=== PATIENT | male | born 1935 | race Caucasian/White ===

== ENCOUNTER 2021-11-08 21:24 | Inpatient (IN) | payer MEDICARE, OTHER ==
[~2021-11-08] VITALS: Ht 165.1 cm; Wt 80.4 kg
[2021-11-08 22:14] LABS: HEMOGLOBIN 13.9 gm/dl (14.0-17.5); RED BLOOD COUNT 4.8 M/UL (4.20-5.50); WHITE BLOOD COUNT 18.9 K/UL (4.5-11.0)
[2021-11-09 04:19] LABS: HEMOGLOBIN 12.4 gm/dl (14.0-17.5); RED BLOOD COUNT 4.42 M/UL (4.20-5.50); WHITE BLOOD COUNT 17.3 K/UL (4.5-11.0)
[2021-11-09] MEDS ORDERED: LEVOTHYROXINE50 MCG PO (09:22)
[2021-11-09] MEDS ORDERED: FLOMAX 0.4 MG0.4 MG PO (09:22)
[2021-11-09] MEDS ORDERED: NAPROXEN500 MG PO (09:24)
[2021-11-09] MEDS ORDERED: PRAVASTATIN SOD40 MG PO (09:24)
[2021-11-09] MEDS ORDERED: EXENATIDE SC (09:25)
[2021-11-09] MEDS ORDERED: OMEPRAZOLE20 MG PO (09:26)
[2021-11-09] MEDS ORDERED: GLUCOPHAGE 500500 MG PO (09:26)
[2021-11-09] MEDS ORDERED: MYCOSTATIN100000 UTS PO (09:26)
[2021-11-09] MEDS ORDERED: AMLODIPINE BESYL5 MG PO (09:26)
--- NOTE | 2021-11-09 14:01 | NUR ---
11/09/21 1400 FAMILY HERE, UPDATED ON PT STATUS, NO UOP SINCE THIS AM WITH F/C PLACEMENT.
--- NOTE | 2021-11-09 14:03 | NUR ---
11/09/21 1403 INQUIRED ABOUT A PASSCODE FOR INFORMATION TO BE GIVEN OUT. FAMILY STATED "NO NEED FOR ONE, IT WILL ONLY BE A LIMITED FEW THAT WILL CALL AND CHECK ON HIM, FELICIA WHO IS POA AND SANDHYA WHO IS A PRIMARY UX INFORMATION ARCHITECT.
[2021-11-10 04:12] LABS: HEMOGLOBIN 11.5 gm/dl (14.0-17.5); RED BLOOD COUNT 4.1 M/UL (4.20-5.50); WHITE BLOOD COUNT 14.3 K/UL (4.5-11.0)
[2021-11-11 04:04] LABS: HEMOGLOBIN 10.7 gm/dl (14.0-17.5); RED BLOOD COUNT 3.94 M/UL (4.20-5.50); WHITE BLOOD COUNT 16.9 K/UL (4.5-11.0)
[2021-11-11 04:41] LABS: BUN/CREATININE RATIO 37 (0-10)
--- NOTE | 2021-11-11 14:50 | NUR ---
11/11/21 1440 Network Manager notified, pt pulling airvo off, refuses to leave bipap on, oxygen sat in mid to low 80's. Pt is alert to self only. Explained that pt has the mentality of a 12 year old or younger.
[2021-11-12 02:41] LABS: HEMOGLOBIN 12.3 gm/dl (14.0-17.5); WHITE BLOOD COUNT 18.3 K/UL (4.5-11.0)
[2021-11-12 02:44] LABS: RED BLOOD COUNT 4.53 M/UL (4.20-5.50)
[2021-11-12 08:09] LABS: BUN/CREATININE RATIO 35 (0-10)
[2021-11-13 09:40] LABS: WHITE BLOOD COUNT 23.3 K/UL (4.5-11.0)
[2021-11-13 09:41] LABS: HEMOGLOBIN 12.6 gm/dl (14.0-17.5); RED BLOOD COUNT 4.56 M/UL (4.20-5.50)
[2021-11-13 09:58] LABS: BUN/CREATININE RATIO 41 (0-10)
[2021-11-14 03:19] LABS: HEMOGLOBIN 13.5 gm/dl (14.0-17.5); RED BLOOD COUNT 4.85 M/UL (4.20-5.50); WHITE BLOOD COUNT 21.7 K/UL (4.5-11.0)
[2021-11-14 04:19] LABS: BUN/CREATININE RATIO 38 (0-10)
[2021-11-15 04:27] LABS: HEMOGLOBIN 13.1 gm/dl (14.0-17.5); RED BLOOD COUNT 4.68 M/UL (4.20-5.50); WHITE BLOOD COUNT 20.2 K/UL (4.5-11.0)
--- NOTE | 2021-11-18 17:22 | NUR ---
11/18/21 171 DEMANDING TO GO SMOKE WITH VISITOR, REFUSES TO STAY IN ROOM, EXPLAINED TO PATIENT AND VISITOR, NON SMOKING POLICY AND THAT I CANNOT MONITOR HIM WHEN HE IS OUTSIDE THE BUILDING. BOTH STATES THAT DOESNT MATTER. SECURITY CALLED. PATIENT VERBALLY ABUSIVE TO AUDIT SENIOR ASSOCIATE. RESIST COATER DEVELOPER NOTIFED. PATIENT PULLED NICOTINE PATCH OFF. 11/18/211719 VISITOR WHEELED PATIENT OUTSIDE IN WHEELCHAIR
--- NOTE | 2021-11-18 19:35 | NUR ---
HOME ARRIVED AT 1924 TO GET PATIENT. BAG OF PERSONAL CLOTHES, PILLOWS, AND TWO BLANKETS SENT WITH PATIENT. LEFT FLOOR AT 1933.
== END 2021-11-18 17:42 | disposition expired | DRG 177 ==
LOC: ER1 21:24 → PROG CARE 22:51 → CDU 22:51 → PROG CARE 11-09 00:23 → M/S 11-16 10:27
PROVIDERS: Internal Medicine; Internal Medicine Pulmonary Disease; Preventive Medicine Occupational Medicine; ADMIT Family Medicine
PROC: 8E0ZXY6 Isolation (ICD-10-PCS; principal; 2021-11-08)
PROC: 3E0333Z Introduction of Anti-inflammatory into Peripheral Vein, Percutaneous Approach (ICD-10-PCS; 2021-11-08)
PROC: XW033E5 Introduction of Remdesivir Anti-infective into Peripheral Vein, Percutaneous Approach, New Technology Group 5 (ICD-10-PCS; 2021-11-08)
PROC: 5A0935A Assistance with Respiratory Ventilation, Less than 24 Consecutive Hours, High Flow/Velocity Cannula (ICD-10-PCS; 2021-11-09)
PROC: 5A0945A Assistance with Respiratory Ventilation, 24-96 Consecutive Hours, High Flow/Velocity Cannula (ICD-10-PCS; 2021-11-10)
PROC: 5A09457 Assistance with Respiratory Ventilation, 24-96 Consecutive Hours, Continuous Positive Airway Pressure (ICD-10-PCS; 2021-11-13)
DX: U07.1 COVID-19 (principal); J12.82 Pneumonia due to coronavirus disease 2019; J15.9 Unspecified bacterial pneumonia; J80 Acute respiratory distress syndrome; J69.0 Pneumonitis due to inhalation of food and vomit; G93.41 Metabolic encephalopathy; N17.9 Acute kidney failure, unspecified; Z66 Do not resuscitate; Z51.5 Encounter for palliative care; I12.9 Hypertensive chronic kidney disease with stage 1 through stage 4 chronic kidney disease, or unspecified chronic kidney disease; N18.30 Chronic kidney disease, stage 3 unspecified; E11.65 Type 2 diabetes mellitus with hyperglycemia; T38.0X5A Adverse effect of glucocorticoids and synthetic analogues, initial encounter; E11.22 Type 2 diabetes mellitus with diabetic chronic kidney disease; E78.5 Hyperlipidemia, unspecified; E66.9 Obesity, unspecified; M19.90 Unspecified osteoarthritis, unspecified site; G31.84 Mild cognitive impairment of uncertain or unknown etiology; F41.9 Anxiety disorder, unspecified; R53.81 Other malaise; E03.9 Hypothyroidism, unspecified; N40.0 Benign prostatic hyperplasia without lower urinary tract symptoms; K21.9 Gastro-esophageal reflux disease without esophagitis; Z79.4 Long term (current) use of insulin; Z90.49 Acquired absence of other specified parts of digestive tract; Z83.3 Family history of diabetes mellitus; Z79.2 Long term (current) use of antibiotics; Z79.01 Long term (current) use of anticoagulants; Z79.82 Long term (current) use of aspirin; Z68.29 Body mass index [BMI] 29.0-29.9, adult
CPT/HCPCS: 36415; 36600; 71045; 80048; 80053; 81001; 82728; 82803; 82962; 83605; 83615; 83690; 83735; 83880; 84100; 84450; 84460; 85025; 85027; 85379; 85384; 85652; 86140; 87040; 87086; 93005; 94640; 94660; 94664; 94760; 96374; 96375; 99284; J0696; J1100; J1650; J1940; J2060; J2270; J2543; J3486; J7030